=== PATIENT | female | born 1960 | race Caucasian/White ===

== ENCOUNTER 2022-06-11 18:43 | Day surgery (SDC) | payer BC, SELFPAY ==
[2022-06-11 19:27] VITALS: BP 147/91; PULSE 65; RESP 18; TEMP 36.4; O2SAT 96
[2022-06-11 19:54] VITALS: BP 158/95; PULSE 62; RESP 18; O2SAT 97
--- NOTE | 2022-06-11 19:57 | ED_ITS ---
HPI - Abdominal Pain General Time Seen by Provider: 19:58 Date Seen: 06/11/22 Chief Complaint: Abdominal Pain Stated Complaint: abdomen pain Time Seen by Provider: 06/11/22 19:57 Source: patient, RN notes reviewed and old records reviewed Mode of arrival: ambulatory Limitations: no limitations History of Present Illness HPI narrative: Marina is a very pleasant 61-year-old female with history of intermittent tobacco use who comes to the emergency room for evaluation regarding abdominal pain. Patient notes that today was a normal day and she and her are visiting from [place] watching their son who is a senior at [employer] a baseball. She states about 1300 hours she noticed some pain in her right side of her abdomen. She said was rather gradual in onset. She notes that it is continued to worsen. She still describes that she still ?feels hungry? if she can ignore the pain. She notes she tried some melvi rail some Tums and a walk and nothing seemed to improve. She has not had abdominal surgeries in the past. She denies nausea vomiting or any urinary symptoms. She thinks that she feels warmer than normal and has had her face break out in a sweat a few times. This is never happened to her before. Movement and going over bumps increases her pain. Related Data Allergies Allergy/AdvReac Type Severity Reaction Status Date / Time No Known Drug Allergies Allergy Verified 06/11/22 19:33 Review of Systems Status of ROS Reports: 10 or more systems reviewed and unremarkable except as noted in History and below Const Reports: fever (Feels warm) Eyes Denies: change in vision ENMT Denies: throat pain or neck pain Cardio Denies: chest pain, palpitations, edema, swelling of feet/ankles, lightheadedness or shortness of breath with exertion Resp Denies: shortness of breath or cough GI Reports: abdominal pain; Denies: nausea, vomiting or diarrhea Denies: painful urination, urinary frequency or urinary urgency Musculo Denies: neck pain Integ/Breast Denies: rash Neuro Denies: headache, numbness in extremities or weakness in extremities PFSH PFSH Social History Smoking Status: Current some day smoker Do you use any of these nicotine containing products: None How often do you have a drink containing alcohol: 2-4 times a month How many standard drinks containing alcohol do you have on a typical day: 1 or 2 AUDIT-C Alcohol total score: 2 Non-prescribed substance use: denies use Exam Narrative: Exam Narrative: Patient is alert and oriented. Not in any acute distress. Well-spoken woman. External ears eyes nose clear. Dentition intact. Heart with regular rate and rhythm and lungs are clear to auscultation. Abdomen is soft she has tenderness especially in the right upper quadrant. To a lesser extent right lower quadrant. Straight leg raise headaches does not increase tenderness but and rotation externally of the leg does. Bowel sounds are present. Moving all extremities. Const: Vital Signs, click to edit/add: Vital Signs - 24 hr 06/11/22 19:27 06/11/22 19:54 06/11/22 21:21 Temperature 97.5 F L Pulse Rate [Right Pulse Oximeter] 65 62 58 L Respiratory Rate 18 18 18 Blood Pressure [Ri ght Upper Arm] 147/91 H 158/95 H 153/101 H Pulse Oximetry 96 97 66 L Oxygen Delivery Me thod Room Air Room Air Room Air 06/11/22 21:38 Temperature Pulse Rate [Right Pulse Oximeter] Respiratory Rate Blood Pressure [Ri ght Upper Arm] 143/83 H Pulse Oximetry Oxygen Delivery Me thod Documenting provider has reviewed patient's vital signs: yes Course Course Hospital Course: Differential diagnosis includes but is not limited to cholecystitis, biliary colic, ureteral colic, colitis, diverticulitis, intussusception, appendicitis, urinary tract infection. At this time will place an IV in use Toradol 15 mg IV for pain control. L of normal saline will be given. At this time recommend CT of the abdomen. Further labs to include CBC, comprehensive panel, bilirubin direct as well as urinalysis and CRP Reevaluation(s) Reevaluation #1: Patient is feeling much improved after IV Toradol and fluids. She continues to be NPO. I do speak with her about the CT which does show acute appendicitis. Reevaluation #2: Patient denies any problems with previous anesthesia. No recent chest pain or shortness of breath. Consultations Consultation #1: Consult with surgeon Dr. Gold in regards to this patient. Vital Signs Vital signs: Initial Vital Signs Temperature 97.5 F L 06/11/22 19:27 Temperature Source Temporal Artery Scan 06/11/22 19:27 Pulse Rate 65 05/04/23 19:27 Pulse Rhythm Regular 06/11/22 19:27 Respiratory Rate 18 06/11/22 19:27 Blood Pressure 147/91 H 06/11/22 19:27 Blood Pressure Mean 109 H 06/11/22 19:27 Blood Pressure Position Sitting 06/11/22 19:27 Pulse Oximetry 96 06/11/22 19:27 Oxygen Delivery Method Room Air 06/11/22 19:27 Vital Signs Temperature 97.5 F L 06/11/22 19:27 Pulse Rate 65 06/11/22 19:27 Respiratory Rate 18 06/11/22 19:27 Blood Pressure 147/91 H 06/11/22 19:27 Pulse Oximetry 96 06/11/22 19:27 Oxygen Delivery Method Room Air 06/11/22 19:27 Temperature 97.5 F L 06/11/22 19:27 Pulse Rate 58 L 06/11/22 21:21 Respiratory Rate 18 06/11/22 21:21 Blood Pressure 143/83 H 06/11/22 21:38 Pulse Oximetry 66 L 06/11/22 21:21 Oxygen Delivery Method Room Air 06/11/22 21:21 MDM - Abdominal Pain MDM Narrative Medical decision making narrative: 1. Acute appendicitis-patient received Toradol 15 mg IV for discomfort and this has been very helpful. Patient will be admitted to the hospital for IV antibiotics. Zosyn 3.375 g IV q.6 hours. First dose is ordered in the emergency room. Dr. Gold is planned on surgery tomorrow morning at 0715. Patient is admitted to observation as she is not going directly to same-day surgery. 2. Disposition-admit under the care of Dr. Lanier, hospitalist with Dr. Gold, surgeon consulting. Lab Data Attestation: I reviewed the patient's lab results. Labs: Lab Results 06/11/22 Range/Units 20:17 WBC 15.86 H (4.50-11.00) K/uL RBC 4.50 (4.00-5.20) m/uL Hgb 14.2 (12.0-16.0) gm/dL Hct 41.0 (33.0-51.0) % MCV 91 (80-100) fL MCH 32 (26-34) pg MCHC 35 (32-36) gm/dL RDW Coeff of Brown 11.7 (11.5-15.5) % Plt Count 295 (140-440) K/uL Neut % (Auto) 83.7 H (42.0-72.0) % Lymph % (Auto) 9.2 L (20-44) % [place] % (Auto) 6.7 (0.0-11.0) % Eos % (Auto) 0.1 (0.0-7.0) % Baso % (Auto) 0.1 (0.0-3.0) % Neut # (Auto) 13.30 H (1.7-7.0) K/uL Lymph # (Auto) 1.50 (0.90-2.90) K/uL [place] # (Auto) 1.10 H (0.00-0.90) K/UL Eos # (Auto) 0.00 (0.00-0.50) K/uL Baso # (Auto) 0.00 (0.00-0.30) K/uL Sodium 136 (135-149) mmol/L Potassium 4.1 (3.6-5.1) mmol/L Chloride 104 (96-114) mmol/L Carbon Dioxide 24 (20-32) mmol/L BUN 14 (7-30) mg/dL Creatinine 0.7 (0.5-1.5) mg/dL Estimated GFR 100 ml/min Glucose 123 H (60-115) mg/dL Calcium 8.9 (8.4-10.6) mg/dL Total Bilirubin 0.4 (0.1-1.5) mg/dL Direct Bilirubin 0.0 (0.0-0.5) mg/dL AST 23 (12-35) U/L ALT 20 (4-35) U/L Alkaline Phosphatase 87 (40-150) U/L C-Reactive Protein 1.2 H (0.5-1.0) mg/dL Total Protein 7.0 (6.0-8.3) g/dL Albumin 4.3 (3.3-5.0) g/dL Lipase 83 (23-300) U/L Urine Color Yellow (Yellow) Urine Appearance Clear (Clear) Urine pH 5.0 (5.0-8.5) Ur Specific [place] 1.025 (1.000-1.030) Urine Protein Negative (Negative) Urine Glucose (UA) Negative (Negative) Urine Ketones Trace A (Negative) Urine Blood 1+ A (Negative) Urine Nitrite Negative (Negative) Urine Bilirubin Negative (Negative) Urine Urobilinogen 0.2 (0.2-1.0) Ur Leukocyte Esterase 1+ A (Negative) Urine RBC 2-5 A (0-2) Urine WBC 2-5 (0-5) Ur Squamous Epith Cells Few (None-Few) Urine Bacteria Few A (None) Imaging Data CT scan - abdomen: Attestation: I have reviewed the pertinent imaging results. Radiologist's impression: Lower chest: Unremarkable. Liver: Normal in size and attenuation. No suspicious masses. Gallbladder and bile ducts: No stones or inflammation. No biliary dilatation. Pancreas: Unremarkable. No mass or inflammation. Spleen: Normal in size. No masses. Adrenal glands: Normal in size. No nodules. Kidneys: Normal in size. No suspicious masses, stones, or hydronephrosis. GI tract: Unremarkable. Normal in caliber. No sign of mass or inflammation. Enlarged inflamed appendix with appendicolith at the base measuring up to 15 millimeters in diameter with surrounding inflammatory changes. No focal drainable fluid collections. No definite evidence of perforation. Vasculature: Abdominal aorta is normal in caliber. Lymph nodes: Enlarged right lower quadrant mesenteric lymph nodes. Peritoneum/Abdominal Wall: Unremarkable. No sign of mass or infiltration. No free air or significant free fluid. Pelvis: Incomplete bladder distention. Uterus is unremarkable. Bones: Unremarkable for age. IMPRESSION: Acute appendicitis. No focal drainable fluid collections or definite evidence of perforation. Appendicoliths at the base. Discharge Plan Discharge Clinical Impression: Acute appendicitis Qualifiers: Acute appendicitis type: unspecified acute appendicitis type Qualified Code(s): K35.80 - Unspecified acute appendicitis Patient Disposition: Admitted As Inpatient Condition: Stable
--- NOTE | 2022-06-11 20:08 | CRLHL7_ITS ---
For Patients: As a result of the Century Cures Act, medical imaging exams and procedure reports are released immediately into your electronic medical record. You may view this report before your referring provider. If you have questions, please contact your health care provider. INDICATION: Right upper quadrant and right lower quadrant abdominal pain for 7 hours.. TECHNIQUE: CT abdomen and pelvis without contrast. COMPARISON: None. FINDINGS: Limited evaluation of the intra-abdominal solid organs without IV contrast. Lower chest: Unremarkable. Liver: Normal in size and attenuation. No suspicious masses. Gallbladder and bile ducts: No stones or inflammation. No biliary dilatation. Pancreas: Unremarkable. No mass or inflammation. Spleen: Normal in size. No masses. Adrenal glands: Normal in size. No nodules. Kidneys: Normal in size. No suspicious masses, stones, or hydronephrosis. GI tract: Unremarkable. Normal in caliber. No sign of mass or inflammation. Enlarged inflamed appendix with appendicolith at the base measuring up to 15 millimeters in diameter with surrounding inflammatory changes. No focal drainable fluid collections. No definite evidence of perforation. Vasculature: Abdominal aorta is normal in caliber. Lymph nodes: Enlarged right lower quadrant mesenteric lymph nodes. Peritoneum/Abdominal Wall: Unremarkable. No sign of mass or infiltration. No free air or significant free fluid. Pelvis: Incomplete bladder distention. Uterus is unremarkable. Bones: Unremarkable for age. IMPRESSION: Acute appendicitis. No focal drainable fluid collections or definite evidence of perforation. Appendicoliths at the base. Please note that all CT scans at this facility use dose modulation, iterative reconstruction, and/or weight-based dosing when appropriate to reduce radiation dose to as low as reasonably achievable. Dictated by Yas Mendoza MD @ 06/11/2022 9:47:39 PM (Electronically Signed)
[2022-06-11] MEDS: 0.9 % SODIUM CHLORIDE 1000 ml 1,000 ML IV (20:22)
[2022-06-11] MEDS: KETOROLAC 15 MG/ML inj IVP (20:22)
[2022-06-11 20:28] LABS: Basophils Percent Auto 0.1 % (0.0-3.0); Eosinophils Percent Auto 0.1 % (0.0-7.0); Hemoglobin* 14.2 gm/dL (12.0-16.0); Immature Granulocytes Pct Auto 0.2 %; Lymphocytes Percent Auto 9.2 % (20-44); Mean Corpuscular HGB Conc 35 gm/dL (32-36); Mean Corpuscular Hemoglobin 32 pg (26-34); Mean Corpuscular Volume 91 fL (80-100); Monocytes Percent Auto 6.7 % (0.0-11.0); Neutrophils Percent Auto 83.7 % (42.0-72.0); Platelet Count* 295 K/uL (140-440); RDW Coefficient of Variation % 11.7 % (11.5-15.5); White Blood Count* 15.86 K/uL (4.50-11.00)
[2022-06-11 20:30] LABS: Appearance Urine Clear (Clear); Bilirubin Urine Negative (Negative); Blood Urine 1+ (Negative); Color Urine Yellow (Yellow); Glucose Urine Negative (Negative); Ketones Urine Trace (Negative); Leukocyte Esterase Urine 1+ (Negative); Nitrite Urine Negative (Negative); Protein Urine Negative (Negative); Specific Gravity Urine 1.025 (1.000-1.030); Urobilinogen Urine 0.2 (0.2-1.0)
[2022-06-11 20:32] LABS: Slide Review Reflex No
[2022-06-11 20:41] LABS: Albumin* 4.3 g/dL (3.3-5.0); Chloride* 104 mmol/L (96-114); Potassium* 4.1 mmol/L (3.6-5.1); Sodium* 136 mmol/L (135-149)
[2022-06-11 20:43] LABS: Creatinine* 0.7 mg/dL (0.5-1.5); Estimated Glomerular Filt Rate 100 ml/min
[2022-06-11 20:44] LABS: Alanine Aminotransferase* 20 U/L (4-35); Alkaline Phosphatase* 87 U/L (40-150); Aspartate Amino Transferase* 23 U/L (12-35); Bilirubin Total* 0.4 mg/dL (0.1-1.5); Blood Urea Nitrogen* 14 mg/dL (7-30); Carbon Dioxide* 24 mmol/L (20-32); Glucose* 123 mg/dL (60-115); Lipase* 83 U/L (23-300)
[2022-06-11 20:45] LABS: Calcium* 8.9 mg/dL (8.4-10.6)
[2022-06-11 20:46] LABS: Bacteria Urine Few; Squamous Epithelial Cell Urine Few (None-Few)
[2022-06-11 20:47] LABS: C Reactive Protein* 1.2 mg/dL (0.5-1.0)
[2022-06-11 21:21] VITALS: BP 153/101; PULSE 58; RESP 18; O2SAT 66
[2022-06-11 21:38] VITALS: BP 143/83
--- NOTE | 2022-06-11 23:02 | PC.NURSE ---
Dr Lanier in assessing patient
[2022-06-11 23:07] VITALS: BP 134/97; PULSE 69; RESP 18; O2SAT 96
[2022-06-11] MEDS: PIPERACILLIN/TAZOBACTAM 3.375 GM in 0.9 % SODIUM CHLORIDE Mini-bag 100 ML IVPB (23:17)
--- NOTE | 2022-06-11 23:27 | PC.NURSE ---
report given to Shantal Chan RN
--- NOTE | 2022-06-11 23:39 | PM.IMHP1 ---
Hospitalist- H&P: KARUNA History of Present Illness Date Seen: 06/11/22 Chief complaint: abdomen pain Narrative: Marina Oconnor is a 61 year old female with no serious medical problems presents to the emergency department with abdominal pain starting 1:00 p.m. today. Patient reports she was in her usual state of good health until about 1:00 p.m. today when she had pain that was in her left mid and upper abdominal area. During the afternoon it migrated across the middle of her abdomen to her right lower quadrant. The pain is constant. Nothing seems to make it better or worse. She has had no vomiting. Bowels have been normal. No fever. No previous abdominal surgery. She has had previous surgery with bunionectomy in wisdom teeth extraction. There were no complications related to anesthesia. She has had no previous history of bleeding or clotting. There is no family history of problems with anesthesia bleeding or clotting. She was hospitalized some 30 years ago for an infection in her spine. The cause for this was not clear and her symptoms resolved though it took weeks. Past medical history includes osteoporosis a neuroma in her foot and sciatica involving her left lower extremity. She is visiting [place] from [place] with her . Her son is a student at [employer] and placed on the baseball team. She smokes about 1 pack of cigarettes per month. She drinks alcohol about 10 times per month. No recreational drug use. She is retired from working for an [employer] company. She gets regular exercise. Family history is notable for her mom having irritable bowel syndrome. Her mom also has hypertension and a history of breast cancer. Her dad has had prostate cancer and hypertension and appendicitis. No family history of problems with anesthesia bleeding or clotting. [facility] Medical History Sciatica ?M54.30 - Sciatica, unspecified side (ICD-10) Osteoporosis ?M81.0 - Age-related osteoporosis without current pathological fracture (ICD-10) Surgical History History of bunionectomy ?Z98.890 - Other specified postprocedural states (ICD-10) History of wisdom tooth extraction ?K08.409 - Partial loss of teeth, unspecified cause, unspecified class (ICD-10) Family History (Updated 06/11/22 @ 23:47 by Juan Antonio Lanier MD) Mother Breast cancer High blood pressure Father Prostate cancer High blood pressure Other Diabetes Social History Smoking Status: Current some day smoker Do you use any of these nicotine containing products: None How often do you have a drink containing alcohol: 2-4 times a month How many standard drinks containing alcohol do you have on a typical day: 1 or 2 AUDIT-C Alcohol total score: 2 Non-prescribed substance use: denies use Meds Home Medications and Allergies Allergies Allergy/AdvReac Type Severity Reaction Status Date / Time No Known Drug Allergies Allergy Verified 06/11/22 19:33 Exam Narrative: Exam Narrative: She is alert and appears in no distress. She gives her own history. Eyes are normal. Oropharynx is normal neck is supple without mass or adenopathy. Respirations are clear to auscultation. Cardiovascular: S1, S2, regular rate and rhythm. No murmur gallop or rub. Abdomen: Bowel sounds active. Abdomen is soft. She has mild right lower quadrant tenderness with some voluntary guarding. No peritonitis. No mid or left-sided abdominal tenderness. I do not palpate a mass. External genitalia normal. Extremities with intact pulses and sensation. No edema Const: Vital Signs, click to edit/add: Vital Signs - 24 hr 06/11/22 19:27 06/11/22 19:54 06/11/22 21:21 Temperature 97.5 F L Pulse Rate [Right Pulse Oximeter] 65 62 58 L Respiratory Rate 18 18 18 Blood Pressure [Ri ght Upper Arm] 147/91 H 158/95 H 153/101 H Pulse Oximetry 96 97 66 L Oxygen Delivery Me thod Room Air Room Air Room Air 06/11/22 21:38 06/11/22 23:07 Temperature Pulse Rate [Right Pulse Oximeter] 69 Respiratory Rate 18 Blood Pressure [Ri ght Upper Arm] 143/83 H 134/97 H Pulse Oximetry 96 Oxygen Delivery Me thod Room Air Documenting provider has reviewed patient's vital signs: yes Hospitalist - H&P: Result Labs Labs: Short CBC 06/11/22 Range/Units 20:17 WBC 15.86 H (4.50-11.00) K/uL Hgb 14.2 (12.0-16.0) gm/dL Hct 41.0 (33.0-51.0) % Plt Count 295 (140-440) K/uL BMP 06/11/22 20:17 Sodium 136 Potassium 4.1 Chloride 104 Carbon Dioxide 24 BUN 14 Creatinine 0.7 Glucose 123 H Calcium 8.9 Liver Function 06/11/22 Range/Units 20:17 Total Bilirubin 0.4 (0.1-1.5) mg/dL Direct Bilirubin 0.0 (0.0-0.5) mg/dL AST 23 (12-35) U/L ALT 20 (4-35) U/L Alkaline Phosphatase 87 (40-150) U/L Albumin 4.3 (3.3-5.0) g/dL Urine 06/11/22 Range/Units 20:17 Urine Color Yellow (Yellow) Urine Appearance Clear (Clear) Urine pH 5.0 (5.0-8.5) Ur Specific [place] 1.025 (1.000-1.030) Urine Protein Negative (Negative) Urine Glucose (UA) Negative (Negative) Assessment and Plan Assessment and plan (1) Acute appendicitis: Status: Acute Plan Patient be admitted for surgical consultation and treatment with Dr. Nascimento. IV fluids, IV antibiotics, IV pain medicines and surgery in the morning. Patient appears to be low risk for complications of surgery and general anesthesia. Total time spent today is 50 minutes, 30 minutes in coordination of care and discussing with patient other providers ongoing evaluation management of appendicitis.
--- NOTE | 2022-06-11 23:41 | PC.NURSE ---
patient sent to floor room 262
[2022-06-11 23:50] VITALS: BP 147/91; PULSE 71; RESP 16; TEMP 37; O2SAT 98; BMI 25.5
[2022-06-12] VITALS (14 sets, daily range): BP systolic 100–115; BP diastolic 57–83; PULSE 58–82; RESP 16; TEMP 36.3–38.1; O2SAT 92–95
[2022-06-12] MEDS: LACTATED RINGERS 1000 ML 1,000 ML 500 ML IV (01:00)
[2022-06-12] MEDS: MORPHINE 4 MG/ML INJ 2 MG IVP (01:14)
[2022-06-12] MEDS: SODIUM CHLORIDE 0.9 % (FLUSH) 10 ML SYRINGE 5 ML IVF (01:14)
[2022-06-12] MEDS: LACTATED RINGERS 1000 ML 1,000 ML 75 ML IV (03:09)
[2022-06-12] MEDS: PIPERACILLIN/TAZOBACTAM 3.375 GM in 0.9 % SODIUM CHLORIDE Mini-bag 100 ML IVPB (05:52)
--- NOTE | 2022-06-12 06:42 | P.GSCN_ITS ---
History of Present Illness Consult details Date Seen: 06/12/22 Consult date: 06/12/22 Narrative: 61-year-old female presented to emergency room with abdominal pain. Patient states that her abdominal pain started yesterday around 1:00 p.m.. She thought that she was hungry, however her pain was not resolved after lunch. Patient denies any nausea or vomiting. Her pain persisted and she called the nurse line. She was recommended to come to the emergency room. Patient's last bowel movement was yesterday. In the emergency room she was found to have an elevated WBC of 15. An abdominal CT was obtained that showed dilated appendix with an appendicolith. There were mild periappendiceal inflammatory changes. There was no evidence of an abscess. Review of Systems Narrative: General: no fevers HENT: no problems swallowing CV: no shortness of breath Resp: no cough GI: See above : no dysuria, no increased urinary frequency, no hematuria Skin: no new rashes Musculoskeletal: no back pain Neuro: no muscle weakness Psyche: no depression, no anxiety PFSH PFSH Medical History Sciatica ?M54.30 - Sciatica, unspecified side (ICD-10) Osteoporosis ?M81.0 - Age-related osteoporosis without current pathological fracture (ICD- 10) Surgical History History of bunionectomy ?Z98.890 - Other specified postprocedural states (ICD-10) History of wisdom tooth extraction ?K08.409 - Partial loss of teeth, unspecified cause, unspecified class (ICD- 10) Family History (Updated 06/11/22 @ 23:47 by Juan Antonio Lanier MD) Mother Breast cancer High blood pressure Father Prostate cancer High blood pressure Other Diabetes Social History Highest level of school completed/degree received: Associate degree: academic program Smoking Status: Current some day smoker What tobacco products do you use: cigarettes Do you use any of these nicotine containing products: None How often do you have a drink containing alcohol: 2-4 times a month Alcohol type: wine How many standard drinks containing alcohol do you have on a typical day: 1 or 2 AUDIT-C Alcohol total score: 2 Non-prescribed substance use: denies use Caffeine: Yes (DIET COKE 3x/DAY) service: No Meds Home Medications and Allergies Allergies Allergy/AdvReac Type Severity Reaction Status Date / Time No Known Drug Allergies Allergy Verified 06/11/22 19:33 Exam Narrative: Exam Narrative: General appearance: Alert, cooperative, and in no distress Pulmonary: Chest symmetric, lungs clear bilaterally Cardiovascular Heart: Regular rate and rhythm, S1, S2, no murmurs/rubs/gallops Gastrointestinal Abdominal: soft, not distended, tender to percussion in bilateral lower quadrants, tender to palpation in the right lower quadrant with rebound tenderness. Skin: Normal skin color, texture, and turgor. No rashes or lesions. Psychiatric: Alert, cooperative, normal affect. Const: Vital Signs, click to edit/add: Vital Signs - 24 hr 06/11/22 19:27 06/11/22 19:54 06/11/22 21:21 Temperature 97.5 F L Pulse Rate [Pulse Oximeter] Pulse Rate [Right Pulse Oximeter] 65 62 58 L Respiratory Rate 18 18 18 Blood Pressure [Le ft Arm] Blood Pressure [Ri ght Upper Arm] 147/91 H 158/95 H 153/101 H Pulse Oximetry 96 97 66 L Oxygen Delivery Me thod Room Air Room Air Room Air 06/11/22 21:38 06/11/22 23:07 06/11/22 23:50 Temperature 98.6 F Pulse Rate [Pulse Oximeter] 71 Pulse Rate [Right Pulse Oximeter] 69 Respiratory Rate 18 16 Blood Pressure [Le ft Arm] 147/91 H Blood Pressure [Ri ght Upper Arm] 143/83 H 134/97 H Pulse Oximetry 96 98 Oxygen Delivery Me thod Room Air Room Air 06/11/22 23:50 06/12/22 03:00 Temperature 100.6 F H Pulse Rate [Pulse Oximeter] 74 Pulse Rate [Right Pulse Oximeter] Respiratory Rate 16 16 Blood Pressure [Le ft Arm] 115/57 L Blood Pressure [Ri ght Upper Arm] Pulse Oximetry 98 95 Oxygen Delivery Me thod Room Air Room Air Results Labs Labs: Abnormal lab results 06/11/22 Range/Units 20:17 WBC 15.86 H (4.50-11.00) K/uL Neut % (Auto) 83.7 H (42.0-72.0) % Lymph % (Auto) 9.2 L (20-44) % Neut # (Auto) 13.30 H (1.7-7.0) K/uL [place] # (Auto) 1.10 H (0.00-0.90) K/UL Glucose 123 H (60-115) mg/dL C-Reactive Protein 1.2 H (0.5-1.0) mg/dL Urine Ketones Trace A (Negative) Urine Blood 1+ A (Negative) Ur Leukocyte Esterase 1+ A (Negative) Urine RBC 2-5 A (0-2) Urine Bacteria Few A (None) Diabetes panel 06/11/22 Range/Units 20:17 Sodium 136 (135-149) mmol/L Potassium 4.1 (3.6-5.1) mmol/L Chloride 104 (96-114) mmol/L Carbon Dioxide 24 (20-32) mmol/L BUN 14 (7-30) mg/dL Creatinine 0.7 (0.5-1.5) mg/dL Glucose 123 H (60-115) mg/dL Calcium 8.9 (8.4-10.6) mg/dL AST 23 (12-35) U/L ALT 20 (4-35) U/L Alkaline Phosphatase 87 (40-150) U/L Total Protein 7.0 (6.0-8.3) g/dL Albumin 4.3 (3.3-5.0) g/dL Calcium panel 06/11/22 Range/Units 20:17 Calcium 8.9 (8.4-10.6) mg/dL Albumin 4.3 (3.3-5.0) g/dL Pituitary panel 06/11/22 Range/Units 20:17 Sodium 136 (135-149) mmol/L Potassium 4.1 (3.6-5.1) mmol/L Chloride 104 (96-114) mmol/L Carbon Dioxide 24 (20-32) mmol/L BUN 14 (7-30) mg/dL Creatinine 0.7 (0.5-1.5) mg/dL Glucose 123 H (60-115) mg/dL Calcium 8.9 (8.4-10.6) mg/dL Adrenal panel 06/11/22 Range/Units 20:17 Sodium 136 (135-149) mmol/L Potassium 4.1 (3.6-5.1) mmol/L Chloride 104 (96-114) mmol/L Carbon Dioxide 24 (20-32) mmol/L BUN 14 (7-30) mg/dL Creatinine 0.7 (0.5-1.5) mg/dL Glucose 123 H (60-115) mg/dL Calcium 8.9 (8.4-10.6) mg/dL Total Bilirubin 0.4 (0.1-1.5) mg/dL AST 23 (12-35) U/L ALT 20 (4-35) U/L Alkaline Phosphatase 87 (40-150) U/L Total Protein 7.0 (6.0-8.3) g/dL Albumin 4.3 (3.3-5.0) g/dL All other labs normal. Assessment and Plan Assessment and plan (1) Acute appendicitis: Status: Acute Plan 61-year-old female presents with acute appendicitis. I discussed with the patient her laboratory and CT findings. Patient has a dilated appendix with an appendicolith with mild periappendiceal inflammatory changes. I recommended to proceed with laparoscopic appendectomy. The procedure was discussed in detail. The risks associated procedure including infection, bleeding, injury to intra-abdominal organs, and intra-abdominal abscess were all discussed with the patient, and she agreed to proceed.
[2022-06-12] MEDS: BUPIVACAINE 0.5% 30 ML 10 ML INJECTION (07:27)
--- NOTE | 2022-06-12 07:31 | SUR.OPER ---
PATIENT QUESTIONS ANSWERED SATISFACTORILY PREOPERATIVELY. PATIENT BROUGHT TO OR #4 PER WHEELCHAIR. Patient positioned supine on OR #4 bed.? Perioperative team supported bilateral arms on arm boards. Final approval of positioning by surgeon.
--- NOTE | 2022-06-12 07:45 | W.ANESCHARGE ---
Anesthesia Charges Start Date/Time Anesthesia Start Date: 06/12/22 Anesthesia Start Time: 07:12 Stop Date/Time Anesthesia Stop Date: 06/12/22 Anesthesia Stop Time: 08:17 Summary Emergency: MDA
--- NOTE | 2022-06-12 07:57 | PC.NURSE ---
END OF SHIFT NOTE: PT PLEASANT AND COOPERATIVE. PT DENIES CP, SOB, N/V. AMBULATES INDEPENDENTLY. ABDOMEN TENDER TO PALPATION. VSS ON RA; TEMP 98.6, 100.6, 99.8F. 2MG PRN MORPHINE GIVEN FOR R QUADRANT PAIN. CALL LIGHT WITHIN PT?S REACH. PT LEFT UNIT FOR OR @0650. NPO THROUGHOUT SHIFT.
--- NOTE | 2022-06-12 08:16 | W.ANESCHARGE ---
Anesthesia Charges Start Date/Time Anesthesia Start Date: 06/12/22 Anesthesia Start Time: 07:12 Stop Date/Time Anesthesia Stop Date: 06/12/22 Anesthesia Stop Time: 08:17 Summary Emergency: DOCTOR OF DENTAL SURGERY
--- NOTE | 2022-06-12 08:18 | PM.GSPRC ---
Operative Note Date of procedure: 06/12/22 Pre-op diagnosis: 1. Acute appendicitis. Post-op diagnosis: 1. Gangrenous appendicitis with small perforation during surgery. Type of Procedure: 1. Laparoscopic appendectomy. Indications: 61-year-old female presented to emergency room with abdominal pain that started several hours prior to her presentation. The pain was Periumbilical, persistent and constant. upon her workup she was found to have an elevated WBC of 15. An abdominal CT was obtained that showed a dilated appendix with periappendiceal inflammation. There was evidence of an appendicolith. On clinical exam patient had tenderness to palpation in the right lower quadrant with rebound tenderness. Given patient's history and clinical exam, a laparoscopic appendectomy was recommended. The risks of the procedure including infection, bleeding, injury to intra-abdominal organs, and intra-abdominal abscess were all discussed with the patient, she agreed to proceed. Procedure Description: After discussing the risks and benefits of the procedure, the patient signed informed consent.? The operative site was marked and the patient was brought to the operating room and placed on the operating table in supine position.? Care was taken to pad the patient's pressure points.?? The patient was then intubated by anesthesia.?? The operative site was then prepped and draped in the usual sterile fashion.? A time-out was then performed. A 5-mm laparoscopy port was placed in the left upper quadrant guided by a 5-mm laparoscope placed into a translucent trochar. Passage through the layers of the abdominal wall was visualized with the laparoscope. A pneumoperitoneum was established. A 30-degree 5-mm laparoscope was advanced into the abdomen. The abdomen was briefly surveyed, and there was no evidence of diffuse peritonitis. A 12-mm port and a 5-mm port were placed suprapubically, respectively, under direct visualization by laparoscope. Left upper quadrant entrance port was then examined intraabdominally by placing the camera through the left lower quadrant port and no intraabdominal injury was seen. The patient was placed in Trendelenburg position, allowing the abdominal contents to shift cephalad. The small bowel was moved toward the midline in the abdomen and this allowed for identification of the appendix. There was some peritoneal changes of the terminal ileum. The appendix appeared to be long and gangrenous. The appendix was grasped and dissected from the peritoneum using Harmonic scalpel. [employer] Specialist is the appendix was grasped, a small opening was noted in the appendix with stool coming out from that opening. This was promptly suctioned out. The appendix was dissected from appendiceal mesentery using Harmonic scalpel. The appendiceal base was identified. A [place] clamp was passed between the appendiceal mesentery and the base of the appendix, creating a window. A vascular load Endo-AKILAH stapler was advanced through the 12-mm port into the abdomen and appendix was stapled off at its base. The appendiceal mesentery was further skeletonized with a Harmonic scalpel. The appendix was then placed in an endoscopic retrieval bag and extracted from the abdomen through the 12-mm port. The abdomen was surveyed for hemostasis. And no bleeding was seen. There is no definite appendiceal artery that was divided but the dissection was carried adjacent to the appendix. Minimal irrigation was done in the right lower quadrant. The 12-mm port was withdrawn and the fascial defect was closed with 0-0 Vicryl stitch using Blair Driss needle under direct visualization. The 5-mm port was removed under direct visualization. The left upper quadrant port was used to evacuate the pneumoperitoneum and then withdrawn. The skin incisions were closed with 4-0 monocryl. Steri-Strips were applied over the incisions. All counts were correct at the end of the case. The patient tolerated this procedure well and was transferred to PACU in stable condition. Findings: Gangrenous appendicitis. Small perforation noted during grasping of the appendix. No significant contamination was noted during the case. Anesthesia: GETA Surgeon: Lesley Nascimento MD Estimated blood loss (mL): 5 Specimen: Appendix Condition: stable Disposition: PACU
[2022-06-12] MEDS: LACTATED RINGERS 1000 ML 1,000 ML 50 ML IV (08:28)
[2022-06-12] MEDS: ACETAMINOPHEN 325 MG TABLET 650 MG PO (11:10)
--- NOTE | 2022-06-12 14:39 | PC.NURSE ---
Pt returned from PACU at 0900 this AM, alert and oriented, vitals stable, on RA, denying pain. Pt finished receiving liter of LR from PACU, then saline locked. Tolerated PO fluids, denies nausea. Dressings (steri-strips) to abdomen intact, very scant blood noted to each, otherwise remain intact without issue. Ice pack applied to abdomen for pain and swelling. Ex- at bedside, support person. Pt stated minimal discomfort to incision sites after a while and received PRN Tylenol which pt stated was effective. Pt up to void 600ml of urine. Using IS, achieving 1850ml. Pt cleared for d/c by surgeon. D/C paperwork reviewed with pt, questions answered. Pt's ex- stated he already picked up pt's prescriptions. Pt aware of new medications, reviewed and understanding of f/u appt. IV catheter removed intact. Pt given all belongings including her locked valuable item of rowe ($671). Pt d/c back to her rented house with ex-, given wheelchair ride out at 1410.
== END 2022-06-12 14:10 | disposition home or self-care (01) ==
LOC: ED 22:48 → SS 23:44 → MEDSURG 23:54
PROVIDERS: Emergency Provider Family Medicine; Visit Provider Surgery
PROC: 0DTJ4ZZ Resection of Appendix, Percutaneous Endoscopic Approach (ICD-10-PCS; CPT 44970; principal; 2022-06-12 07:15)
DX: K35.32 Acute appendicitis with perforation, localized peritonitis, and gangrene, without abscess (principal)
CPT/HCPCS: 44970; 00840; 36415; 74176; 80053; 81001; 82248; 83690; 85025; 86140; 87086; 88304; 99140; 99284; 99285; A9270; J0330; J1100; J1885; J2270; J2405; J2543; J2704; J2710; J3010; J3490; J7030; J7120

== ENCOUNTER 2022-06-13 19:49 | Emergency (ER) | payer BC, SELFPAY ==
[2022-06-13 19:57] VITALS: BP 148/87; PULSE 79; RESP 16; TEMP 35.9; O2SAT 93; BMI 25.1
--- NOTE | 2022-06-13 20:12 | CRLHL7_ITS ---
For Patients: As a result of the Century Cures Act, medical imaging exams and procedure reports are released immediately into your electronic medical record. You may view this report before your referring provider. If you have questions, please contact your health care provider. Indication: Abdominal pain, status post appendectomy Technique: Postcontrast CT abdomen and pelvis. 79 cc Isovue 370 intravenous contrast. Please note that all CT scans at this facility use dose modulation, iterative reconstruction, and/or weight-based dosing when appropriate to reduce radiation dose to as low as reasonably achievable. Comparison: CT 06/11/2022 Findings: Mild dependent atelectasis noted in both lung bases without pleural effusion. Normal liver, gallbladder, spleen, adrenal glands, kidneys and pancreas. Postoperative changes of appendectomy. Moderate pelvic free fluid has developed. Fluid distension small bowel noted involving the distal jejunum and ileum. No free intraperitoneal air. Curvilinear densities in the right lower quadrant mesenteric fat noted. No organized abscess. No free intraperitoneal air. Normal bladder, uterus and ovaries. No fracture. Impression: Status post appendectomy. No abscess or disseminated free air. Interval development of moderate pelvic free fluid and distended fluid filled loops of ileum and distal jejunum, likely representing postoperative ileus in the immediate postoperative setting. It is likely too early for developing obstruction. Please note that all CT scans at this facility use dose modulation, iterative reconstruction, and/or weight-based dosing when appropriate to reduce radiation dose to as low as reasonably achievable. Dictated by Reggie Solorio MD @ 06/13/2022 9:18:59 PM (Electronically Signed)
--- NOTE | 2022-06-13 20:13 | ED_ITS ---
HPI - General Adult General Chief complaint: Post Op Complication Stated complaint: Appendectomy yesterday, pain and vomiting Time Seen by Provider: 06/13/22 20:03 History of Present Illness HPI narrative: This 61-year-old female comes in with worsening abdominal pain. She was diagnosed with appendicitis and had an appendectomy early yesterday morning. She did real well until a few hours ago when she had real sharp pain in the area of her surgical site and a feeling of bloating with some nausea and vomiting. She has been passing gas. She states that her pain currently is at 2 or 3/10 and does not have significant nausea currently. Related Data Previous Rx's Medication Instructions Recorded amoxicillin 875 mg-potassium 1 tab PO BID #14 tabs 06/12/22 clavulanate 125 mg tablet hydrocodone 5 mg-acetaminophen 325 1 tab PO Q6H PRN pain #20 tabs 06/12/22 mg tablet Allergies Allergy/AdvReac Type Severity Reaction Status Date / Time No Known Drug Allergies Allergy Verified 06/11/22 19:33 Review of Systems Status of ROS: Reports: 10 or more systems reviewed and unremarkable except as noted in History and below Narrative: Constitutional: No fevers, no weight gain or loss. Eyes: No discharge. No vision changes. HENT: No congestion, no sore throat, no ear pain. Cardiovascular: No chest pain, no palpitations. Respiratory: No shortness of breath, no wheezes, no cough. Gastrointestinal: No diarrhea. Abdominal pain with nausea and vomiting as desc ribed above. Genitourinary: No dysuria, no hematuria. Musculoskeletal: Normal range of motion. Skin: No rashes, no pruritis. Neurological: No dizziness, weakness, sensory change, speech change. Endo/Heme/Allergies: No bruising or bleeding. No polydipsia. Pysch: no suicidality, no anxiety, no insomnia. All other systems reviewed and are negative. [facility] Medical History Sciatica ?M54.30 - Sciatica, unspecified side (ICD-10) Osteoporosis ?M81.0 - Age-related osteoporosis without current pathological fracture (ICD- 10) Surgical History History of bunionectomy ?Z98.890 - Other specified postprocedural states (ICD-10) History of wisdom tooth extraction ?K08.409 - Partial loss of teeth, unspecified cause, unspecified class (ICD- 10) Family History (Updated 06/11/22 @ 23:47 by Juan Antonio Lanier MD) Mother Breast cancer High blood pressure Father Prostate cancer High blood pressure Other Diabetes Social History Highest level of school completed/degree received: Associate degree: academic program Smoking Status: Current some day smoker What tobacco products do you use: cigarettes Do you use any of these nicotine containing products: None How often do you have a drink containing alcohol: 2-4 times a month Alcohol type: wine How many standard drinks containing alcohol do you have on a typical day: 1 or 2 AUDIT-C Alcohol total score: 2 Non-prescribed substance use: denies use Caffeine: Yes (DIET COKE 3x/DAY) service: No Exam Narrative: Exam Narrative: Constitutional: Well-developed, well-nourished, no acute distress. HEENT: Normocephalic, atraumatic. Neck: Normal range of motion. Nontender. Supple. Heart: Regular. No murmurs. Normal rate. Intact distal pulses. Lungs: Clear to auscultation. No chest discomfort. No wheezes, rhonchi, or rales. Abdomen: Normal bowel sounds. Diffuse tenderness with more localized tenderness in the right lower quadrant. Rebound tenderness is present. Genitalia: Deferred. Back: No midline tenderness. Normal range of motion. Extremities: Normal range of motion. No injury. Skin: Intact. No rash. Warm. No erythema or pallor. Neurologic: No altered sensation. No weakness. Alert and oriented. Psychiatric: No suicidality. No anxiety or depression. No insomnia. Nursing notes and vitals signs are reviewed. Const: Vital Signs, click to edit/add: Vital Signs - 24 hr 06/13/22 19:57 Temperature 96.6 F L Pulse Rate [Left P ulse Oximeter] 79 Respiratory Rate 16 Blood Pressure [Ri ght Upper Arm] 148/87 H Pulse Oximetry 93 Oxygen Delivery Me thod Room Air Course Vital Signs Vital signs: Initial Vital Signs Temperature 96.6 F L 06/13/22 19:57 Temperature Source Temporal Artery Scan 06/13/22 19:57 Pulse Rate 79 06/13/22 19:57 Pulse Rhythm Regular 06/13/22 19:57 Respiratory Rate 16 06/13/22 19:57 Blood Pressure 148/87 H 06/13/22 19:57 Blood Pressure Mean 107 H 06/13/22 19:57 Blood Pressure Position Sitting 06/13/22 19:57 Pulse Oximetry 93 06/13/22 19:57 Oxygen Delivery Method Room Air 06/13/22 19:57 Vital Signs Temperature 96.6 F L 06/13/22 19:57 Pulse Rate 79 06/13/22 19:57 Respiratory Rate 16 06/13/22 19:57 Blood Pressure 148/87 H 06/13/22 19:57 Pulse Oximetry 93 06/13/22 19:57 Oxygen Delivery Method Room Air 06/13/22 19:57 Temperature 96.6 F L 06/13/22 19:57 Pulse Rate 79 06/13/22 19:57 Respiratory Rate 16 06/13/22 19:57 Blood Pressure 148/87 H 06/13/22 19:57 Pulse Oximetry 93 06/13/22 19:57 Oxygen Delivery Method Room Air 06/13/22 19:57 Medical Decision Making MDM Narrative Medical decision making narrative: This patient comes in for worsening pain after having her appendix removed yesterday morning. An IV was established where she received a L of normal saline and [address] imaging of the abdomen and pelvis shows no findings except for postoperative changes may be related to an ileus. Lab results returned with reassuring findings. Her white count is just slightly elevated. I did speak with the surgeon on-call, Dr. Gold who did this surgery yesterday morning. The patient feels okay to return home and is encouraged then to take clear liquids only for the least a couple days and then advance diet as tolerated. The patient is okay with this plan and knows to return if not improving or worsening symptoms happen. She received a prescription for Zofran. Lab Data Labs: Lab Results 06/13/22 06/13/22 06/13/22 Range/Units 20:20 20:20 20:20 WBC 12.82 H (4.50-11.00) K/uL RBC 4.48 (4.00-5.20) m/uL Hgb 14.1 (12.0-16.0) gm/dL Hct 40.5 (33.0-51.0) % MCV 90 (80-100) fL MCH 32 (26-34) pg MCHC 35 (32-36) gm/dL RDW Coeff of Brown 11.7 (11.5-15.5) % Plt Count 258 (140-440) K/uL Neut % (Auto) 87.4 H (42.0-72.0) % Lymph % (Auto) 6.4 L (20-44) % [place] % (Auto) 5.7 (0.0-11.0) % Eos % (Auto) 0.1 (0.0-7.0) % Baso % (Auto) 0.1 (0.0-3.0) % Neut # (Auto) 11.20 H (1.7-7.0) K/uL Lymph # (Auto) 0.80 L (0.90-2.90) K/uL [place] # (Auto) 0.70 (0.00-0.90) K/UL Eos # (Auto) 0.00 (0.00-0.50) K/uL Baso # (Auto) 0.00 (0.00-0.30) K/uL Sodium 133 L (135-149) mmol/L Potassium 3.6 (3.6-5.1) mmol/L Chloride 98 (96-114) mmol/L Carbon Dioxide 25 (20-32) mmol/L BUN 11 (7-30) mg/dL Creatinine 0.7 (0.5-1.5) mg/dL Estimated Creat Clear 84.15 Estimated GFR 100 ml/min Glucose 141 H (60-115) mg/dL Calcium 8.7 (8.4-10.6) mg/dL Total Bilirubin 0.8 Cancelled (0.1-1.5) mg/dL Direct Bilirubin 0.3 Cancelled (0.0-0.5) mg/dL AST 26 (12-35) U/L ALT (4-35) U/L Alkaline Phosphatase (40-150) U/L Total Protein (6.0-8.3) g/dL Albumin (3.3-5.0) g/dL Lipase (23-300) U/L 06/13/22 06/13/22 06/13/22 Range/Units 20:20 20:20 20:20 WBC (4.50-11.00) K/uL RBC (4.00-5.20) m/uL Hgb (12.0-16.0) gm/dL Hct (33.0-51.0) % MCV (80-100) fL MCH (26-34) pg MCHC (32-36) gm/dL RDW Coeff of Brown (11.5-15.5) % Plt Count (140-440) K/uL Neut % (Auto) (42.0-72.0) % Lymph % (Auto) (20-44) % [place] % (Auto) (0.0-11.0) % Eos % (Auto) (0.0-7.0) % Baso % (Auto) (0.0-3.0) % Neut # (Auto) (1.7-7.0) K/uL Lymph # (Auto) (0.90-2.90) K/uL [place] # (Auto) (0.00-0.90) K/UL Eos # (Auto) (0.00-0.50) K/uL Baso # (Auto) (0.00-0.30) K/uL Sodium (135-149) mmol/L Potassium (3.6-5.1) mmol/L Chloride (96-114) mmol/L Carbon Dioxide (20-32) mmol/L BUN (7-30) mg/dL Creatinine (0.5-1.5) mg/dL Estimated Creat Clear Estimated GFR ml/min Glucose (60-115) mg/dL Calcium (8.4-10.6) mg/dL Total Bilirubin (0.1-1.5) mg/dL Direct Bilirubin (0.0-0.5) mg/dL AST Cancelled (12-35) U/L ALT 25 Cancelled (4-35) U/L Alkaline Phosphatase 79 Cancelled (40-150) U/L Total Protein 6.9 (6.0-8.3) g/dL Albumin (3.3-5.0) g/dL Lipase (23-300) U/L 06/13/22 06/13/22 Range/Units 20:20 20:20 WBC (4.50-11.00) K/uL RBC (4.00-5.20) m/uL Hgb (12.0-16.0) gm/dL Hct (33.0-51.0) % MCV (80-100) fL MCH (26-34) pg MCHC (32-36) gm/dL RDW Coeff of Brown (11.5-15.5) % Plt Count (140-440) K/uL Neut % (Auto) (42.0-72.0) % Lymph % (Auto) (20-44) % [place] % (Auto) (0.0-11.0) % Eos % (Auto) (0.0-7.0) % Baso % (Auto) (0.0-3.0) % Neut # (Auto) (1.7-7.0) K/uL Lymph # (Auto) (0.90-2.90) K/uL [place] # (Auto) (0.00-0.90) K/UL Eos # (Auto) (0.00-0.50) K/uL Baso # (Auto) (0.00-0.30) K/uL Sodium (135-149) mmol/L Potassium (3.6-5.1) mmol/L Chloride (96-114) mmol/L Carbon Dioxide (20-32) mmol/L BUN (7-30) mg/dL Creatinine (0.5-1.5) mg/dL Estimated Creat Clear Estimated GFR ml/min Glucose (60-115) mg/dL Calcium (8.4-10.6) mg/dL Total Bilirubin (0.1-1.5) mg/dL Direct Bilirubin (0.0-0.5) mg/dL AST (12-35) U/L ALT (4-35) U/L Alkaline Phosphatase (40-150) U/L Total Protein Cancelled (6.0-8.3) g/dL Albumin 3.9 Cancelled (3.3-5.0) g/dL Lipase 34 (23-300) U/L Imaging Data CT scan - abdomen: Radiologist's impression: Status post appendectomy. No abscess or disseminated free air. Interval development of moderate pelvic free fluid and distended fluid filled loops of ileum and distal jejunum, likely representing postoperative ileus in the immediate postoperative setting. It is likely too early for developing obstruction. Discharge Plan Discharge Clinical Impression: Ileus, postoperative Patient Disposition: Home, Self-Care Condition: Stable Additional Instructions: Clear liquids only for these 2 days then advance diet as tolerated. Use medication as needed and directed. Follow up with MD or return if worsening. Prescriptions: No Action hydrocodone-acetaminophen 5-325 mg tablet 1 tab PO Q6H PRN (Reason: pain) Qty: 20 0RF amoxicillin-pot clavulanate 875-125 mg tablet 1 tab PO BID Qty: 14 0RF Follow Up/Referrals: Provider,Not a Local [Primary Care Provider] - Stand Alone Forms: [employer] Info Instructions
[2022-06-13 20:30] LABS: Basophils Percent Auto 0.1 % (0.0-3.0); Eosinophils Percent Auto 0.1 % (0.0-7.0); Hematocrit 40.5 % (33.0-51.0); Hemoglobin* 14.1 gm/dL (12.0-16.0); Immature Granulocytes Pct Auto 0.3 %; Lymphocytes Percent Auto 6.4 % (20-44); Mean Corpuscular HGB Conc 35 gm/dL (32-36); Mean Corpuscular Hemoglobin 32 pg (26-34); Mean Corpuscular Volume 90 fL (80-100); Monocytes Percent Auto 5.7 % (0.0-11.0); Neutrophils Percent Auto 87.4 % (42.0-72.0); Platelet Count* 258 K/uL (140-440); RDW Coefficient of Variation % 11.7 % (11.5-15.5); Red Blood Count 4.48 m/uL (4.00-5.20); White Blood Count* 12.82 K/uL (4.50-11.00)
[2022-06-13 20:32] LABS: Slide Review Reflex No
[2022-06-13 20:44] LABS: Chloride* 98 mmol/L (96-114)
[2022-06-13 20:45] LABS: Albumin* 3.9 g/dL (3.3-5.0); Potassium* 3.6 mmol/L (3.6-5.1); Sodium* 133 mmol/L (135-149)
[2022-06-13 20:47] LABS: Creatinine* 0.7 mg/dL (0.5-1.5); Est. Creatinine Clearance* 84.15; Estimated Glomerular Filt Rate 100 ml/min
[2022-06-13 20:48] LABS: Alanine Aminotransferase* 25 U/L (4-35); Alkaline Phosphatase* 79 U/L (40-150); Aspartate Amino Transferase* 26 U/L (12-35); Bilirubin Direct* 0.3 mg/dL (0.0-0.5); Bilirubin Total* 0.8 mg/dL (0.1-1.5); Blood Urea Nitrogen* 11 mg/dL (7-30); Calcium* 8.7 mg/dL (8.4-10.6); Carbon Dioxide* 25 mmol/L (20-32); Glucose* 141 mg/dL (60-115); Lipase* 34 U/L (23-300); Total Protein* 6.9 g/dL (6.0-8.3)
[2022-06-13] MEDS: ONDANSETRON 2 MG/ML inj 4 MG IVP (21:45)
[2022-06-13] MEDS: 0.9 % SODIUM CHLORIDE 1000 ml 1,000 ML IV (22:44)
[2022-06-13] MEDS: ACETAMINOPHEN 500 MG TABLET PO (22:44)
== END 2022-06-13 23:38 | disposition home or self-care (01) ==
PROVIDERS: Emergency Provider Emergency Medicine Emergency Medical Services
DX: K91.89 Other postprocedural complications and disorders of digestive system (principal); K56.7 Ileus, unspecified
CPT/HCPCS: 36415; 74177; 80048; 80076; 83690; 85025; 96374; 99284; 99285; A9270; J2405; J7030; Q9967

== ENCOUNTER 2022-06-17 16:07 | Outpatient (CLI) | payer BC, SELFPAY ==
--- NOTE | 2022-06-17 16:00 | CRLHL7_ITS ---
For Patients: As a result of the Century Cures Act, medical imaging exams and procedure reports are released immediately into your electronic medical record. You may view this report before your referring provider. If you have questions, please contact your health care provider. INDICATION: Abdominal pain. Status post recent appendectomy. TECHNIQUE: CT of the abdomen and pelvis with 79 cc Isovue 370 IV contrast. Coronal and sagittal reconstructions. COMPARISON: CT of the abdomen and pelvis 06/13/2022. FINDINGS: The liver, spleen, pancreas, and adrenal glands are negative. Increased density within the gallbladder lumen likely related to vicarious excretion of contrast from prior exams. No biliary dilation. Hepatic and portal veins are patent. Symmetric enhancement of the kidneys. No hydronephrosis or ureteral dilation. No obstructing urinary calculi identified. The bladder and uterus normal in appearance. No adnexal mass. Status post appendectomy. There are persistently dilated fluid-filled loops of mid to distal small bowel with gradual tapering in the distal ileum. The terminal ileum is decompressed and appears inflamed. Gas and fluid throughout the colon. Findings likely represent ongoing postoperative ileus. No definite obstruction. No intraperitoneal free air. Since prior exam, there is new rim enhancement of a fluid collection in the right posterior pelvis measuring 4.3 x 3.1 cm (series 2, image 127). Findings likely represent a developing abscess. No gas within the collection. The amount of fluid is decreased compared to prior exam. Likely reactive inflammatory changes of the adjacent rectosigmoid colon. Small fat containing umbilical hernia. Scarring in the left lower anterior abdominal wall. No lymphadenopathy. Mild vascular calcifications. The bones are unremarkable. New trace right pleural effusion. Mild bibasilar atelectasis. IMPRESSION: 1. Persistently dilated fluid-filled loops of mid to distal small bowel with gradual tapering in the distal ileum. Gas and fluid throughout the colon. Findings likely represent ongoing postoperative ileus. Inflammatory changes of the terminal ileum. 2. 4.3 x 3.1 cm rim enhancing fluid collection in the right posterior pelvis suspicious for developing abscess. Likely reactive inflammatory changes of the adjacent rectosigmoid colon. 3. Findings discussed with Lesley Nascimento at 5:51 p.m. on 06/17/2022. Please note that all CT scans at this facility use dose modulation, iterative reconstruction, and/or weight-based dosing when appropriate to reduce radiation dose to as low as reasonably achievable. Dictated by Caity Ashby MD @ 06/17/2022 5:54:22 PM (Electronically Signed)
== END 2022-06-17 16:08 | disposition home or self-care (01) ==
LOC: CT 16:07
PROVIDERS: Visit Provider Surgery
DX: R10.9 Unspecified abdominal pain (principal)
CPT/HCPCS: 74177; Q9967